=== PATIENT | male | born 1955 | race African-American/Black ===

== ENCOUNTER 2017-11-19 03:53 | Inpatient (IN) | payer MEDICARE, MEDICAID ==
[2017-11-19] MEDS ORDERED: LIDOCAINE 1% (MDV) 20 ML INJ (04:12)
[2017-11-19 04:56] LABS: ABNORMAL IP MESSAGE 1; ADD MAN DIFF? NO; BASOPHIL # 0.1 10^3/ul (0.0-0.1); BASOPHILS % 0.7 % (0.0-2.0); EOSINOPHILS # 0.1 10^3/ul (0.0-0.5); EOSINOPHILS % 0.8 % (0.0-7.0); HEMATOCRIT 27.5 % (42.0-52.0); HEMOGLOBIN 8.6 g/dl (14.0-18.0); LYMPHOCYTES # 1.8 10^3/ul (0.8-2.9); LYMPHOCYTES % 11.1 % (15.0-51.0); MEAN CORPUSCULAR HEMOGLOBIN 30.5 pg (29.0-33.0); MEAN CORPUSCULAR HGB CONC 31.3 g/dl (32.0-37.0); MEAN CORPUSCULAR VOLUME 97.5 fl (82.0-101.0); MEAN PLATELET VOLUME 8.9 fl (7.4-10.4); MONOCYTE # 1.7 10^3/ul (0.3-0.9); MONOCYTES % 10.2 % (0.0-11.0); NEUTROPHIL # 12.5 10^3/ul (1.6-7.5); NEUTROPHILS % 76.5 % (39.0-77.0); PLATELET COUNT 537 10^3/UL (140-415); POSITIVE DIFF @See below; RED BLOOD COUNT 2.82 10^6/ul (4.70-6.10); RED CELL DISTRIBUTION WIDTH 14.9 % (11.5-14.5)
[2017-11-19 04:56] LABS: WHITE BLOOD COUNT 16.4 10^3/ul (4.8-10.8)
[2017-11-19] MEDS: HYDROmorphONE 1 MG/ML SYG IV ×3 (05:07→07:30)
[2017-11-19 05:15] LABS: ALANINE AMINOTRANSFERASE 26 IU/L (13-69); ALBUMIN/GLOBULIN RATIO 0.88; ALKALINE PHOSPHATASE 177 IU/L (42-121); ANION GAP 22 (8-16); ASPARTATE AMINO TRANSFERASE 59 IU/L (15-46); BLOOD UREA NITROGEN 38 mg/dl (7-20); CALCIUM 9.1 mg/dl (8.4-10.2); CARBON DIOXIDE 32 mmol/L (21-31); CHLORIDE 97 mmol/L (97-110); CREATININE 7.11 mg/dl (0.61-1.24); GLUCOSE 124 mg/dl (70-220); LIPASE 59 U/L (23-300); SODIUM 146 mmol/L (135-144); TOTAL PROTEIN 8.5 g/dl (6.1-8.1)
[2017-11-19 05:21] LABS: INR 1.05; PROTIME 13.8 Sec (11.9-14.9); PT RATIO 1.1
[2017-11-19 05:22] LABS: PARTIAL THROMBOPLASTIN TIME 34.3 Sec (25.0-35.0)
[2017-11-19 05:49] LABS: TROPONIN-I 0.049 ng/ml (0.00-0.12)
[2017-11-19] MEDS ORDERED: NACL 0.9% 3 ML SYG IV (07:30)
[2017-11-19] MEDS ORDERED: HYDROmorphONE 1 MG/ML SYG IV (08:26)
[2017-11-19] MEDS: HYDROmorphONE 0.5 MG/0.5 ML SYG IV ×5 (08:36→21:44)
[2017-11-19 09:57] LABS: HEMATOCRIT 27.1 % (42.0-52.0); HEMOGLOBIN 8.7 g/dl (14.0-18.0)
[2017-11-19] MEDS ORDERED: morphine 2 MG INJ IV (10:30)
[2017-11-19] MEDS: hydrALAzine 20 MG INJ IV ×4 (10:31→23:33)
[2017-11-19] MEDS: LORAZEPAM 2 MG INJ IV ×4 (10:41→22:41)
[2017-11-19] MEDS: AMLODIPINE 10 MG TAB PO (11:14)
[2017-11-19] MEDS: CALCIUM ACETATE 667 MG CAP PO ×2 (11:50→17:35)
[2017-11-19] MEDS: NITROGLYCERIN 50 MG/D5W (PMX) 250 ML IV ×4 (12:14→22:41)
[2017-11-19] MEDS: morphine LIQ (10 MG/5 ML) CUP PO (12:18)
[2017-11-19] MEDS ORDERED: hydrALAzine 20 MG INJ (18:16)
[2017-11-19 19:08] LABS: HEMATOCRIT 21.7 % (42.0-52.0); HEMOGLOBIN 7.3 g/dl (14.0-18.0)
[2017-11-19] MEDS: LOSARTAN 25 MG TAB PO (19:41)
[2017-11-19] MEDS: ESMOLOL 250 ML IV ×2 (19:42→23:10)
[2017-11-19 21:54] LABS: IMMEDIATE SPIN CROSSMATCH 1 3
[2017-11-20] MEDS: NITROGLYCERIN 50 MG/D5W (PMX) 250 ML IV ×10 (01:19→22:38)
[2017-11-20] MEDS: ESMOLOL 250 ML IV ×9 (01:51→22:38)
[2017-11-20] MEDS: LOSARTAN 25 MG TAB PO ×2 (01:51→21:11)
[2017-11-20] MEDS: HYDROmorphONE 0.5 MG/0.5 ML SYG IV ×6 (03:49→21:14)
[2017-11-20] MEDS: LORAZEPAM 2 MG INJ IV ×2 (04:17→17:34)
[2017-11-20] MEDS: hydrALAzine 20 MG INJ IV (05:15)
[2017-11-20] MEDS: ALBUTEROL/IPRATROPIUM (NEB) 3 ML AMP HHN (05:23)
[2017-11-20] MEDS ORDERED: FLUMAZENIL 0.5 MG INJ (05:30)
[2017-11-20 05:36] LABS: ADD MAN DIFF? NO
[2017-11-20 05:38] LABS: ABNORMAL IP MESSAGE 1; BASOPHIL # 0.1 10^3/ul (0.0-0.1); BASOPHILS % 0.3 % (0.0-2.0); EOSINOPHILS # 0.1 10^3/ul (0.0-0.5); EOSINOPHILS % 0.6 % (0.0-7.0); HEMATOCRIT 27.4 % (42.0-52.0); HEMOGLOBIN 9.3 g/dl (14.0-18.0); LYMPHOCYTES # 0.9 10^3/ul (0.8-2.9); LYMPHOCYTES % 4.7 % (15.0-51.0); MEAN CORPUSCULAR HEMOGLOBIN 31.1 pg (29.0-33.0); MEAN CORPUSCULAR HGB CONC 33.9 g/dl (32.0-37.0); MEAN CORPUSCULAR VOLUME 91.6 fl (82.0-101.0); MEAN PLATELET VOLUME 9.3 fl (7.4-10.4); MONOCYTE # 1.6 10^3/ul (0.3-0.9); MONOCYTES % 8.7 % (0.0-11.0); NEUTROPHIL # 15.5 10^3/ul (1.6-7.5); NEUTROPHILS % 85.2 % (39.0-77.0); PLATELET COUNT 415 10^3/UL (140-415); POSITIVE DIFF @See below; RED BLOOD COUNT 2.99 10^6/ul (4.70-6.10); RED CELL DISTRIBUTION WIDTH 15.8 % (11.5-14.5)
[2017-11-20 05:38] LABS: WHITE BLOOD COUNT 18.2 10^3/ul (4.8-10.8)
[2017-11-20] MEDS: morphine LIQ (10 MG/5 ML) CUP PO ×2 (05:55→11:48)
[2017-11-20] MEDS: CALCIUM ACETATE 667 MG CAP PO ×3 (07:35→17:16)
[2017-11-20] MEDS: INFLUENZA VIRUS VACCINE 0.5 ML (DISPENSING) IM* (09:58)
[2017-11-20] MEDS: EPOETIN 10000 UNITS/1 ML INJ (ESRD) SC (17:16)
[2017-11-20] MEDS: NICOTINE (21 MG/24 HR) PATCH TRANSDERM (17:34)
[2017-11-21] MEDS: HYDROmorphONE 0.5 MG/0.5 ML SYG IV ×6 (00:11→19:53)
[2017-11-21] MEDS: NITROGLYCERIN 50 MG/D5W (PMX) 250 ML IV ×3 (01:08→05:46)
[2017-11-21] MEDS: LORAZEPAM 2 MG INJ IV ×2 (01:11→13:55)
[2017-11-21] MEDS: ESMOLOL 250 ML IV ×3 (02:11→11:00)
[2017-11-21 05:46] LABS: ADD MAN DIFF? NO
[2017-11-21 06:00] LABS: ABNORMAL IP MESSAGE 1; BASOPHILS % 0.2 % (0.0-2.0); EOSINOPHILS % 0.2 % (0.0-7.0); HEMOGLOBIN 9.8 g/dl (14.0-18.0); LYMPHOCYTES # 0.9 10^3/ul (0.8-2.9); LYMPHOCYTES % 5.7 % (15.0-51.0); MEAN CORPUSCULAR HEMOGLOBIN 30.8 pg (29.0-33.0); MEAN CORPUSCULAR HGB CONC 32.7 g/dl (32.0-37.0); MEAN CORPUSCULAR VOLUME 94.3 fl (82.0-101.0); MEAN PLATELET VOLUME 9.1 fl (7.4-10.4); MONOCYTE # 1.6 10^3/ul (0.3-0.9); MONOCYTES % 9.6 % (0.0-11.0); NEUTROPHIL # 13.8 10^3/ul (1.6-7.5); NEUTROPHILS % 83.8 % (39.0-77.0); PLATELET COUNT 493 10^3/UL (140-415); POSITIVE DIFF @See below; RED BLOOD COUNT 3.18 10^6/ul (4.70-6.10); RED CELL DISTRIBUTION WIDTH 15.5 % (11.5-14.5)
[2017-11-21 06:00] LABS: WHITE BLOOD COUNT 16.4 10^3/ul (4.8-10.8)
[2017-11-21 06:52] LABS: ANION GAP 21 (8-16); BLOOD UREA NITROGEN 52 mg/dl (7-20); CALCIUM 8.3 mg/dl (8.4-10.2); CARBON DIOXIDE 19 mmol/L (21-31); CHLORIDE 91 mmol/L (97-110); CREATININE 8.04 mg/dl (0.61-1.24); GLUCOSE 78 mg/dl (70-220); MAGNESIUM 2.2 mg/dl (1.7-2.5); PHOSPHORUS 4.1 mg/dl (2.5-4.9); SODIUM 124 mmol/L (135-144)
[2017-11-21 07:00] LABS: POTASSIUM 6.7 mmol/L (3.5-5.1)
[2017-11-21] MEDS: CALCIUM ACETATE 667 MG CAP PO ×3 (08:13→18:11)
[2017-11-21] MEDS: AMLODIPINE 10 MG TAB PO (08:14)
[2017-11-21] MEDS: NICOTINE (21 MG/24 HR) PATCH TRANSDERM (08:15)
[2017-11-21] MEDS ORDERED: NITROGLYCERIN 50 MG/D5W (PMX) 250 ML IV (09:30)
[2017-11-21] MEDS ORDERED: niCARdipine-NS 0.1MG/ML DRIP 200 ML (09:30)
[2017-11-21] MEDS: OXYCODONE/ACETAMINOPHEN (10/325) TAB PO (11:22)
[2017-11-21] MEDS: niCARdipine 50 MG in SOD CHLORIDE 0.9% 480 ML IV (11:30)
[2017-11-21 20:28] LABS: HEPATITIS B SURFACE ANTIBODY POSITIVE (NEGATIVE)
[2017-11-21] MEDS: LOSARTAN 25 MG TAB PO (20:38)
[2017-11-22 00:22] LABS: HEPATITIS B SURFACE ANTIGEN NEGATIVE (NEGATIVE)
[2017-11-22] MEDS: HYDROmorphONE 0.5 MG/0.5 ML SYG IV ×5 (00:59→20:11)
[2017-11-22] MEDS: niCARdipine 50 MG in SOD CHLORIDE 0.9% 480 ML IV (03:33)
[2017-11-22 05:30] LABS: ADD MAN DIFF? NO
[2017-11-22 05:33] LABS: WHITE BLOOD COUNT 16.7 10^3/ul (4.8-10.8)
[2017-11-22 05:33] LABS: ABNORMAL IP MESSAGE 1; BASOPHIL # 0.1 10^3/ul (0.0-0.1); BASOPHILS % 0.3 % (0.0-2.0); EOSINOPHILS % 0.1 % (0.0-7.0); HEMATOCRIT 29.9 % (42.0-52.0); HEMOGLOBIN 10.1 g/dl (14.0-18.0); LYMPHOCYTES # 0.8 10^3/ul (0.8-2.9); LYMPHOCYTES % 4.9 % (15.0-51.0); MEAN CORPUSCULAR HEMOGLOBIN 31.5 pg (29.0-33.0); MEAN CORPUSCULAR HGB CONC 33.8 g/dl (32.0-37.0); MEAN CORPUSCULAR VOLUME 93.1 fl (82.0-101.0); MEAN PLATELET VOLUME 9.1 fl (7.4-10.4); MONOCYTE # 1.6 10^3/ul (0.3-0.9); MONOCYTES % 9.6 % (0.0-11.0); NEUTROPHIL # 14.1 10^3/ul (1.6-7.5); NEUTROPHILS % 84.6 % (39.0-77.0); NUCLEATED RED BLOOD CELLS% 0.1 /100WBC (0.0-0.0); PLATELET COUNT 489 10^3/UL (140-415); POSITIVE DIFF @See below; RED BLOOD COUNT 3.21 10^6/ul (4.70-6.10); RED CELL DISTRIBUTION WIDTH 15.4 % (11.5-14.5)
[2017-11-22 06:04] LABS: ANION GAP 15 (8-16); BLOOD UREA NITROGEN 20 mg/dl (7-20); CALCIUM 7.8 mg/dl (8.4-10.2); CARBON DIOXIDE 32 mmol/L (21-31); CHLORIDE 94 mmol/L (97-110); CREATININE 4.24 mg/dl (0.61-1.24); GLUCOSE 84 mg/dl (70-220); MAGNESIUM 1.9 mg/dl (1.7-2.5); PHOSPHORUS 3.3 mg/dl (2.5-4.9); POTASSIUM 4.6 mmol/L (3.5-5.1); SODIUM 136 mmol/L (135-144)
[2017-11-22] MEDS: CALCIUM ACETATE 667 MG CAP PO ×3 (08:21→17:35)
[2017-11-22] MEDS: AMLODIPINE 10 MG TAB PO (08:22)
[2017-11-22] MEDS: NICOTINE (21 MG/24 HR) PATCH TRANSDERM (09:00)
[2017-11-22] MEDS: LOSARTAN 25 MG TAB PO ×2 (10:53→20:07)
[2017-11-22] MEDS ORDERED: LIDOCAINE 1% (MDV) 20 ML INJ (14:42)
[2017-11-22] MEDS: LORAZEPAM 2 MG INJ IV (14:58)
[2017-11-22] MEDS: EPOETIN 10000 UNITS/1 ML INJ (ESRD) SC (17:00)
[2017-11-23] MEDS: HYDROmorphONE 0.5 MG/0.5 ML SYG IV ×3 (00:16→08:26)
[2017-11-23] MEDS: LORAZEPAM 2 MG INJ IV (01:27)
[2017-11-23 06:27] LABS: ADD MAN DIFF? NO
[2017-11-23 06:37] LABS: WHITE BLOOD COUNT 10.3 10^3/ul (4.8-10.8)
[2017-11-23 06:37] LABS: ABNORMAL IP MESSAGE 1; BASOPHIL # 0.1 10^3/ul (0.0-0.1); EOSINOPHILS # 0.1 10^3/ul (0.0-0.5); EOSINOPHILS % 0.6 % (0.0-7.0); HEMATOCRIT 31.2 % (42.0-52.0); LYMPHOCYTES # 1.4 10^3/ul (0.8-2.9); MEAN CORPUSCULAR HGB CONC 32.1 g/dl (32.0-37.0); MEAN CORPUSCULAR VOLUME 96.6 fl (82.0-101.0); MEAN PLATELET VOLUME 8.9 fl (7.4-10.4); MONOCYTE # 1.7 10^3/ul (0.3-0.9); MONOCYTES % 16.4 % (0.0-11.0); NEUTROPHIL # 6.9 10^3/ul (1.6-7.5); NEUTROPHILS % 67.5 % (39.0-77.0); PLATELET COUNT 484 10^3/UL (140-415); POSITIVE DIFF @See below; RED BLOOD COUNT 3.23 10^6/ul (4.70-6.10); RED CELL DISTRIBUTION WIDTH 15.9 % (11.5-14.5)
[2017-11-23 07:03] LABS: ANION GAP 17 (8-16); BLOOD UREA NITROGEN 15 mg/dl (7-20); CALCIUM 8.5 mg/dl (8.4-10.2); CARBON DIOXIDE 30 mmol/L (21-31); CHLORIDE 99 mmol/L (97-110); CREATININE 3.54 mg/dl (0.61-1.24); GLUCOSE 124 mg/dl (70-220); PHOSPHORUS 2.7 mg/dl (2.5-4.9); SODIUM 142 mmol/L (135-144)
[2017-11-23] MEDS: niCARdipine 50 MG in SOD CHLORIDE 0.9% 480 ML IV (07:12)
[2017-11-23] MEDS: AMLODIPINE 10 MG TAB PO (08:25)
[2017-11-23] MEDS: CALCIUM ACETATE 667 MG CAP PO ×2 (08:25→10:48)
[2017-11-23] MEDS: NICOTINE (21 MG/24 HR) PATCH TRANSDERM (08:26)
== END 2017-11-23 11:25 | disposition left against medical advice (07) | DRG 264 ==
LOC: E/R 03:53 → TEL 05:36 → ICU 11:50
PROVIDERS: Internal Medicine
PROC: 0X3D0ZZ Control Bleeding in Right Lower Arm, Open Approach (ICD-10-PCS; principal; 2017-11-19)
PROC: 30233N1 Transfusion of Nonautologous Red Blood Cells into Peripheral Vein, Percutaneous Approach (ICD-10-PCS; 2017-11-19)
PROC: 5A1D70Z Performance of Urinary Filtration, Intermittent, Less than 6 Hours Per Day (ICD-10-PCS; 2017-11-20)
PROC: 5A1D70Z Performance of Urinary Filtration, Intermittent, Less than 6 Hours Per Day (ICD-10-PCS; 2017-11-21)
PROC: 5A1D70Z Performance of Urinary Filtration, Intermittent, Less than 6 Hours Per Day (ICD-10-PCS; 2017-11-22)
PROC: 5A1D70Z Performance of Urinary Filtration, Intermittent, Less than 6 Hours Per Day (ICD-10-PCS; 2017-11-23)
DX: T82.838A Hemorrhage due to vascular prosthetic devices, implants and grafts, initial encounter (principal); E87.0 Hyperosmolality and hypernatremia; E87.2 Acidosis; N17.9 Acute kidney failure, unspecified; I12.0 Hypertensive chronic kidney disease with stage 5 chronic kidney disease or end stage renal disease; N18.6 End stage renal disease; E87.1 Hypo-osmolality and hyponatremia; E87.5 Hyperkalemia; I16.0 Hypertensive urgency; D64.9 Anemia, unspecified; F17.210 Nicotine dependence, cigarettes, uncomplicated; Y83.2 Surgical operation with anastomosis, bypass or graft as the cause of abnormal reaction of the patient, or of later complication, without mention of misadventure at the time of the procedure; Y92.019 Unspecified place in single-family (private) house as the place of occurrence of the external cause; Z99.2 Dependence on renal dialysis
CPT/HCPCS: 36415; 36430; 71045; 80048; 80053; 83690; 83735; 84100; 84484; 85014; 85018; 85025; 85610; 85730; 86644; 86706; 86850; 86900; 86901; 86920; 87040; 87081; 87340; 90935; 93005; 94664; 96374; 96376; 99291-25

== ENCOUNTER 2018-08-22 02:42 | Emergency (ER) | payer MEDICARE, MEDICAID ==
[2018-08-22 05:05] LABS: ADD MAN DIFF? NO
[2018-08-22] MEDS: morphine 4 MG/ML VIAL IV (05:07)
[2018-08-22] MEDS: ONDANSETRON 4 MG INJ IV (05:07)
[2018-08-22] MEDS: hydrALAzine 20 MG INJ IV ×2 (05:08→08:44)
[2018-08-22 05:11] LABS: ABNORMAL IP MESSAGE 1; BASOPHIL # 0.1 10^3/ul (0.0-0.1); BASOPHILS % 0.3 % (0.0-2.0); EOSINOPHILS % 0.1 % (0.0-7.0); HEMATOCRIT 34.6 % (42.0-52.0); HEMOGLOBIN 10.5 g/dl (14.0-18.0); LYMPHOCYTES # 0.4 10^3/ul (0.8-2.9); LYMPHOCYTES % 2.7 % (15.0-51.0); MEAN CORPUSCULAR HEMOGLOBIN 30.8 pg (29.0-33.0); MEAN CORPUSCULAR HGB CONC 30.3 g/dl (32.0-37.0); MEAN CORPUSCULAR VOLUME 101.5 fl (82.0-101.0); MONOCYTE # 1.2 10^3/ul (0.3-0.9); NEUTROPHIL # 14.7 10^3/ul (1.6-7.5); NEUTROPHILS % 89.4 % (39.0-77.0); PLATELET COUNT 337 10^3/UL (140-415); POSITIVE DIFF @See below; RED BLOOD COUNT 3.41 10^6/ul (4.70-6.10); RED CELL DISTRIBUTION WIDTH 16.7 % (11.5-14.5)
[2018-08-22 05:11] LABS: WHITE BLOOD COUNT 16.5 10^3/ul (4.8-10.8)
[2018-08-22] MEDS: NA POLYST SULFON 15 GM/60 ML BTL PO (05:48)
[2018-08-22] MEDS: DEXTROSE 50% 50 ML SYRINGE IV (06:04)
[2018-08-22] MEDS: INSULIN REGULAR, HUMAN 100 UNIT/1 ML 3ML VIAL IVP (06:05)
[2018-08-22 06:10] LABS: ALANINE AMINOTRANSFERASE 29 IU/L (13-69); ALBUMIN 4.7 g/dl (3.3-4.9); ALBUMIN/GLOBULIN RATIO 1.17; ALKALINE PHOSPHATASE 219 IU/L (42-121); ANION GAP 21 (5-13); ASPARTATE AMINO TRANSFERASE 52 IU/L (15-46); BLOOD UREA NITROGEN 68 mg/dl (7-20); CALCIUM 8.5 mg/dl (8.4-10.2); CARBON DIOXIDE 23 mmol/L (21-31); CHLORIDE 101 mmol/L (97-110); Estimated GFR 7 mL/min (>60); GLUCOSE 114 mg/dl (70-220); LIPASE 99 U/L (23-300); SODIUM 145 mmol/L (135-144); TOTAL PROTEIN 8.7 g/dl (6.1-8.1)
[2018-08-22] MEDS: CA CHLORIDE 10% 10 ML SYRINGE IV (06:13)
[2018-08-22] MEDS: NA BICARBONATE 8.4% 50 ML SYG IV (06:13)
[2018-08-22] MEDS: HYDROmorphONE 2 MG/ML SYG IV ×3 (06:24→11:04)
[2018-08-22] MEDS: LABETALOL HCL 20MG INJ IV (06:40)
[2018-08-22] MEDS: DIPHTH/TET/ACEL PERTUSS (ADULT) 0.5 ML VIAL IM* (06:48)
[2018-08-22] MEDS: AMOXICILLIN/CLAV 875 MG TAB PO (07:23)
[2018-08-22] MEDS: PIPER-TAZO 3.375 GM IV (PMX) 100 ML IVPB (07:25)
[2018-08-22 08:58] LABS: ALANINE AMINOTRANSFERASE 30 IU/L (13-69); ALBUMIN 4.6 g/dl (3.3-4.9); ALBUMIN/GLOBULIN RATIO 1.12; ALKALINE PHOSPHATASE 213 IU/L (42-121); ANION GAP 19 (5-13); ASPARTATE AMINO TRANSFERASE 48 IU/L (15-46); BLOOD UREA NITROGEN 74 mg/dl (7-20); CALCIUM 9.2 mg/dl (8.4-10.2); CARBON DIOXIDE 24 mmol/L (21-31); CHLORIDE 101 mmol/L (97-110); CREATININE 9.32 mg/dl (0.61-1.24); Estimated GFR 7 mL/min (>60); GLUCOSE 71 mg/dl (70-220); SODIUM 144 mmol/L (135-144); TOTAL PROTEIN 8.7 g/dl (6.1-8.1)
[2018-08-22 09:03] LABS: POTASSIUM 6.9 mmol/L (3.5-5.1)
[2018-08-22] MEDS: niCARdipine-NS 0.1MG/ML DRIP 200 ML IV (09:33)
== END 2018-08-22 11:17 | disposition short-term general hospital (02) ==
LOC: E/R 02:42
DX: S05.32XA Ocular laceration without prolapse or loss of intraocular tissue, left eye, initial encounter (principal); I10 Essential (primary) hypertension; S02.32XA Fracture of orbital floor, left side, initial encounter for closed fracture; Y08.89XA Assault by other specified means, initial encounter; Z23 Encounter for immunization; Z87.891 Personal history of nicotine dependence
CPT/HCPCS: 36415; 70450; 70480; 71045; 80053; 82962; 83690; 84132; 85025; 90471; 90715; 93005; 96374; 96375; 96376; 99291-25